=== PATIENT | female | born 1965 | race Caucasian/White ===

== ENCOUNTER 2022-09-26 09:07 | Emergency (ER) | payer OTHER ==
[~2022-09-26] VITALS: Ht 157.5 cm; Wt 74.8 kg
[~2022-09-26 09:07] MED LIST: CLONAZEPAM2 MG; DEPAKOTE ER250 MG; WELLBUTRIN SR150 MG
== END 2022-09-26 10:44 | disposition home or self-care (01) ==
LOC: ER 09:07
DX: S93.402A Sprain of unspecified ligament of left ankle, initial encounter (principal); S83.91XA Sprain of unspecified site of right knee, initial encounter; W18.30XA Fall on same level, unspecified, initial encounter; Y93.89 Activity, other specified; Y92.488 Other paved roadways as the place of occurrence of the external cause; Y99.9 Unspecified external cause status; M25.551 Pain in right hip